=== PATIENT | female | born 1965 | race Caucasian/White ===

== ENCOUNTER → 2023-09-17 13:18 | Outpatient (REF) | payer OTHER, SELFPAY | LOC: WDC 13:18 | PROVIDERS: ATTENDING PHYSICIAN Obstetrics & Gynecology Gynecology; FAMILY PHYSICIAN Physician Assistant Medical | DX: Z12.31 Encounter for screening mammogram for malignant neoplasm of breast (principal) | CPT/HCPCS: 77063; 77067 ==

== ENCOUNTER 2023-12-20 10:32 | Emergency (ER) | payer OTHER, SELFPAY ==
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
[2023-12-20 13:05] LABS: % Basophils 0.6 % (0-2); % Eosinophils 1.5 % (0-6); % Immature Granulocytes 0.2 % (0-0.5); % Lymphocytes 29.1 % (20.5-51.1); % Monocytes 6.9 % (1.7-9.3); % Neutrophils 61.7 % (42.2-75.2); Absolute Eosinophils 0.1 10^3/uL (0-0.7); Absolute Lymphocytes 1.4 10^3/uL (1.2-3.4); Absolute Monocytes 0.3 10^3/uL (0.1-0.6); Absolute Neutrophils 2.9 10^3/uL (1.4-6.5); Hematocrit 40.6 % (37.0-47.0); Hemoglobin 13.7 g/dL (12.0-16.0); Mean Corp Hgb Conc. 33.7 g/dL (33.0-37.0); Mean Corpuscular Hgb 32.2 pg (27.0-31.0); Mean Corpuscular Volume 95.5 fL (81.0-99.0); Mean Platelet Volume 9.5 fL (7.4-10.4); Nucleated Red Blood Cells % 0 %; Platelet Count 298 10^3/uL (130-400); Red Blood Cell Count 4.25 10^6/uL (4.20-5.40); Red Cell Dist. Width 12.3 % (11.5-14.5); White Blood Cell Count 4.8 10^3/uL (4.8-10.8)
[2023-12-20 13:17] LABS: ALT (SGPT) 37 U/L (0-35); AST (SGOT) 34 U/L (14-36); Albumin 4.6 g/dl (3.5-5.0); Alkaline Phosphatase 71 U/L (38-126); Blood Urea Nitrogen 18 mg/dl (7-17); Calcium 10.1 mg/dl (8.4-10.2); Carbon Dioxide 30 mmol/L (22-30); Chloride 104 mmol/L (98-107); Glucose 133 mg/dl (70-99); Magnesium 2.1 mg/dl (1.6-2.3); Potassium 4.3 mmol/L (3.5-5.1); Sodium 138 mmol/L (135-145); Total Bilirubin 0.3 mg/dl (0.2-1.3); Total Protein 7.2 g/dl (6.3-8.2); eGFR > 60.00
[2023-12-20 13:45] VITALS: BP 103/52
[2023-12-20 15:17] LABS: Urine Albumin Negative (Neg - Trace); Urine Bilirubin Negative (Negative); Urine Color Straw; Urine Glucose Negative (Negative); Urine Ketone Negative (Negative); Urine Leukocyte Negative (Negative); Urine Nitrite Negative (Negative); Urine Occult Blood Negative (Negative); Urine Urobilinogen Negative (Neg - 1+); Urine pH 6.5 (5.0-9.0)
[2023-12-20 15:18] LABS: Urine Character Clear (Clear)
== END 2023-12-20 13:45 | disposition home or self-care (01) ==
LOC: EMR 10:32
PROVIDERS: Physician Assistant; EMERGENCY PHYSICIAN Emergency Medicine; FAMILY PHYSICIAN Physician Assistant Medical
DX: R20.2 Paresthesia of skin (principal)
CPT/HCPCS: 99284; 70450; 80053; 81003; 83735; 85025; 93005

== ENCOUNTER → 2024-01-28 08:58 | Outpatient (REF) | payer OTHER, SELFPAY | LOC: HWRAD 08:58 | PROVIDERS: ATTENDING PHYSICIAN Physician Assistant Medical | DX: M54.2 Cervicalgia (principal) | CPT/HCPCS: 72052 ==

== ENCOUNTER → 2024-02-05 08:25 | Outpatient (REF) | payer OTHER, SELFPAY | LOC: PAVMRI 08:25 | PROVIDERS: ATTENDING PHYSICIAN Physician Assistant Medical | DX: E78.2 Mixed hyperlipidemia (principal); E66.9 Obesity, unspecified; Z09 Encounter for follow-up examination after completed treatment for conditions other than malignant neoplasm; G47.00 Insomnia, unspecified; D17.9 Benign lipomatous neoplasm, unspecified; I34.1 Nonrheumatic mitral (valve) prolapse; R20.2 Paresthesia of skin; R29.898 Other symptoms and signs involving the musculoskeletal system | CPT/HCPCS: 70553; A9575 ==

== ENCOUNTER → 2024-03-08 15:04 | Outpatient (REF) | payer OTHER, SELFPAY | LOC: PAVMRI 15:04 | PROVIDERS: ATTENDING PHYSICIAN Physician Assistant Medical | DX: M54.2 Cervicalgia (principal) | CPT/HCPCS: 72141 ==

== ENCOUNTER → 2024-03-10 08:21 | Outpatient (REF) | payer OTHER, SELFPAY | LOC: HWRCS 08:21 | PROVIDERS: ATTENDING PHYSICIAN Internal Medicine Cardiovascular Disease; FAMILY PHYSICIAN Physician Assistant Medical | DX: I34.1 Nonrheumatic mitral (valve) prolapse (principal); R00.2 Palpitations | CPT/HCPCS: 93306 ==

== ENCOUNTER → 2024-06-10 08:10 | Outpatient (REF) | payer OTHER, SELFPAY | LOC: PAVMRI 08:10 | PROVIDERS: ATTENDING PHYSICIAN Psychiatry & Neurology Neurology; FAMILY PHYSICIAN Physician Assistant Medical | DX: D35.2 Benign neoplasm of pituitary gland (principal) | CPT/HCPCS: 70553; A9575 ==

== ENCOUNTER → 2024-07-02 09:00 | Outpatient (REF) | payer OTHER, SELFPAY | LOC: RAD 09:00 | PROVIDERS: ATTENDING PHYSICIAN Psychiatry & Neurology Neurology; FAMILY PHYSICIAN Physician Assistant Medical | DX: R09.89 Other specified symptoms and signs involving the circulatory and respiratory systems (principal) | CPT/HCPCS: 93880; 93971 ==

== ENCOUNTER → 2024-10-12 15:20 | Outpatient (REF) | payer OTHER, SELFPAY | LOC: WDC 15:20 | PROVIDERS: ATTENDING PHYSICIAN Obstetrics & Gynecology Gynecology; FAMILY PHYSICIAN Physician Assistant Medical | DX: Z12.31 Encounter for screening mammogram for malignant neoplasm of breast (principal) | CPT/HCPCS: 77063; 77067 ==

== ENCOUNTER 2024-11-19 06:07 | Outpatient (RCR) | payer OTHER, SELFPAY | END 2024-11-19 23:59 | disposition home or self-care (01) | LOC: RPT 06:07 | PROVIDERS: ATTENDING PHYSICIAN Pain Medicine Interventional Pain Medicine; FAMILY PHYSICIAN Family Medicine | DX: M54.12 Radiculopathy, cervical region (principal); Z73.6 Limitation of activities due to disability; G89.29 Other chronic pain | CPT/HCPCS: 97110; 97140; 97161 ==

== ENCOUNTER 2024-12-17 09:57 | Outpatient (RCR) | payer OTHER, SELFPAY | END 2024-12-17 23:59 | disposition home or self-care (01) | LOC: RPT 09:57 | PROVIDERS: ATTENDING PHYSICIAN Pain Medicine Interventional Pain Medicine; FAMILY PHYSICIAN Family Medicine | DX: M54.12 Radiculopathy, cervical region (principal); Z73.6 Limitation of activities due to disability; G89.29 Other chronic pain | CPT/HCPCS: 97010; 97110; 97140 ==

== ENCOUNTER → 2025-02-04 14:45 | Outpatient (REF) | payer OTHER, SELFPAY | LOC: PAVMRI 14:45 | PROVIDERS: ATTENDING PHYSICIAN Psychiatry & Neurology Neurology; FAMILY PHYSICIAN Physician Assistant Medical | DX: D35.2 Benign neoplasm of pituitary gland (principal) | CPT/HCPCS: 70553; A9575 ==